=== PATIENT | female | born 1960 | race Caucasian/White ===

== ENCOUNTER → 2016-11-23 | Day surgery (SDC) | payer OTHER ==
[~2016-11-23] MED LIST: COREG3.125 M1 PO; LANTUS100 U/ML SUBQ; METFORMIN HCL500 M4 PO; PRINIVIL20 M1 PO; PROBIOTIC1 EAC6 PO
--- NOTE | ~2016-11-23 | CR63 ---
[facility] A Service of [facility] & [facility] RADIOLOGY TEXT RESULTS PATIENT: SARAHI CHING LOCATION: [facility] : 60 UNIT #: [id number] AGE: [address]: Colt Franklin MD SEX: F ORDER DR: [id number] [facility] [address] [facility] [place], [place] [address] [id number] O MR#: [id number] Acc #: [id number] NAME: SARAHI CHING : 1960 SEX: F STUDY DATE/TIME: 11/23/2016 7:31 UNIT: [facility] ROOM: STUDY DESCRIPTION: CR Chest 2 View Attending Physician: Colt Franklin M.D. Ordering Physician: Colt Franklin M.D. MEDICAL IMAGING REPORT This report is preliminary unless electronic signature is present EXAM Chest, PA and lateral, 11/23/2016. HISTORY Preop right knee arthroscopy today. Benign essential hypertension and shortness of breath today. Diabetes. FINDINGS The heart is normal in size. There is elevation of the right hemidiaphragm with atelectasis at the right lung base. Lungs are otherwise clear. There are no pleural effusions. IMPRESSION No active pulmonary disease. Dictated by... Srinivasa Bess M.D. THIS IS AN ELECTRONICALLY VERIFIED REPORT Srinivasa Bess M.D. at 11/24/2016 2:09 PM ALEXA/vickey TD: 11/23/2016 13:58 JOB #: [id number] MEDICAL IMAGING REPORT Page 1 of 1 COPY
--- NOTE | ~2016-11-23 | OR ---
Unit #: [id number] #: [id number] Patient: SARAHI CHING [id number] [address] [address] [id number] O MR#: [id number] NAME: SARAHI CHING ROOM: Date of Procedure: 11/23/2016 Admission Date: 11/23/2016 Surgeon: Colt Franklin M.D. : 1960 Attending Physician: Colt Franklin M.D. OPERATIVE REPORT PREOPERATIVE DIAGNOSIS Medial meniscal tear of the right knee. POSTOPERATIVE DIAGNOSES Medial meniscal tear of the right knee with degenerative arthritis. PROCEDURE PERFORMED Arthroscopic partial medial meniscectomy. ANESTHESIA General. ESTIMATED BLOOD LOSS Less than 25 mL. DESCRIPTION OF PROCEDURE The patient was brought to the operating room, given a general anesthetic. Tourniquet was placed around the right thigh. The right leg was exsanguinated. Tourniquet inflated to 300, placed in a leg de, and prepped and draped. The arthroscope was introduced through the inferolateral portal. The knee was visualized. Suprapatellar pouch was free of debris. 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 The medial compartment was entered. There was a tear in the posterior horn of the medial meniscus. This was resected using an upbiting basket and the 3.5 incisor blade. The remaining rim was probed and found to be stable. The ACL was intact. The lateral compartment, meniscus, and articular surfaces were fairly well maintained. We removed all the fluid and injected the knee with 15 mL of 0.5% plain Marcaine. Sterile dressing applied and the tourniquet was released and general anesthetic reversed. Dictated by... Vincent Orozco/monique TD: 11/23/2016 09:09 JOB #: [id number] Unit #: [id number] #: [id number] Patient: SARAHI CHING OPERATIVE REPORT Page 1 of 1 X Colt Franklin MD PROCEDURE OPERATIVE NOTE
== END | disposition home or self-care (01) ==
LOC: CSUR 06:19
DX: S83.241A Other tear of medial meniscus, current injury, right knee, initial encounter (principal); M17.11 Unilateral primary osteoarthritis, right knee; M22.41 Chondromalacia patellae, right knee; E11.9 Type 2 diabetes mellitus without complications; Z79.84 Long term (current) use of oral hypoglycemic drugs; I10 Essential (primary) hypertension; Z79.899 Other long term (current) drug therapy; Z90.49 Acquired absence of other specified parts of digestive tract; Z91.041 Radiographic dye allergy status; Z91.013 Allergy to seafood; Z88.2 Allergy status to sulfonamides
CPT/HCPCS: 71020; 82947; J1100; J1885; J2405; J3010; J3490